=== PATIENT | male | born 1995 | race Caucasian/White ===

== ENCOUNTER 2017-01-17 18:45 | Observation (INO) | payer OTHER ==
--- NOTE | 2017-01-17 18:37 | EDPHY ---
Medical Decision Making ED Course/Re-evaluation: CHIEF COMPLAINT: HISTORY OF PRESENT ILLNESS: must have 4 elements: Location, Quality, Severity , Duration, Timing, Context, Modifying Factors, Associated Signs and Symptoms REVIEW OF SYSTEMS: A 10 point review of systems was performed and is negative with the exception of the elements mentioned in the history of present illness. PHYSICAL EXAM: HR, BP, O2 Sat, RR. Temp noted General Appearance: Alert, well hydrated, appropriate, and non-toxic appearing. Head: Atraumatic without scalp tenderness or obvious injury Eyes: Pupils equal, round, reactive to light and accommodation, EOMI, no trauma , no injection. Ears: Clear bilaterally, no perforation, normal landmarks Nose: Atraumatic, no rhinorrhea, clear. Throat: There is no erythema or exudates, no lesions, normal tonsils, mucus membranes moist. Neck: Supple, 2+ carotid upstroke, nontender, no lymphadenopathy. Respiratory: No retractions, no distress, no wheezes, and no accessory muscle use. Lungs are clear to auscultation bilaterally. Cardiovascular: Regular rate and rhythm, no murmurs, rubs, or gallops. Bilateral carotid, radial, dorsalis pedis, and posterior tibial pulses intact. Good capillary refill all extremities. Gastrointestinal: Abdomen is soft, nontender, non-distended, no masses, no rebound, no guarding, no peritoneal signs. Musculoskeletal: Normal active ROM of all extremities, atraumatic. Neurological: Alert, appropriate, and interactive. The patient has normal DTRs and non-focal cranial nerves, motor, sensory, and cerebellar exam. Skin: No rashes, good turgor, no nodules on palpation. Past medical history: Past surgical history: Family history: Social history: DIAGNOSTICS/PROCEDURES/CRITICAL CARE TIME: DIFFERENTIAL DIAGNOSIS: MEDICAL DECISION MAKING:
[2017-01-17] MEDS ORDERED: NS 1,000 ML IV ONE (18:56)
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
[2017-01-17 19:05] LABS: % IMMATURE GRANULYOCYTES 0.3 % (0.0-1.1); ABSOLUTE IMMATURE GRANULOCYTES 0.02 10^3/uL (0.00-0.10); ADD DIFF? NO; ADD MORPH? NO; ADD SCAN? NO; ATYPICAL LYMPHOCYTE FLAG 30 (0-99); FRAGMENT RBC FLAG 0 (0-99); HEMATOCRIT 50.6 % (40.0-51.0); HEMOGLOBIN 17.5 g/dL (13.7-17.5); LEFT SHIFT FLG 0 (0-99); LIPEMIA HEMOLYSIS FLAG 90 (0-99); MEAN CELL HEMOGLOBIN 32.5 pg (27.9-34.1); MEAN CELL HEMOGLOBIN CONCENTR. 34.6 g/dL (32.4-36.7); MEAN CELL VOLUME 94.1 fL (81.5-99.8); PLATELET CLUMPS FLAG 0 (0-99); PLATELET COUNT 290 10^3/uL (150-400); RED BLOOD CELL COUNT 5.38 10^6/uL (4.40-6.38); RED CELL DISTRIBUTION WIDTH 11.5 % (11.5-15.2)
[2017-01-17] MEDS ORDERED: IOPAMIDOL (ISOVUE-300) 100 ML BTL IV ONE (19:05)
[2017-01-17 19:17] LABS: ANION GAP 18 mEq/L (8-16); APTT 27.2 SEC (23.0-38.0); CALCIUM 10.4 mg/dL (8.5-10.4); CARBON DIOXIDE 23 mEq/l (22-31); CHLORIDE 105 mEq/L (97-110); ETHANOL SERUM 235 mg/dL (0-10); GLOMERULAR FILTRATION RATE > 60; GLUCOSE 129 mg/dL (70-100); INR 0.97 (0.83-1.16); POTASSIUM 4.1 mEq/L (3.5-5.2); PROTIME(PATIENT) 12.8 SEC (12.0-15.0); SODIUM 146 mEq/L (134-144)
[2017-01-17] MEDS ORDERED: ONDANSETRON DISINTEGRATING 4 MG TAB PO PRN (21:15)
[2017-01-17] MEDS ORDERED: HYDROCODONE/APAP 5/325 TAB PO PRN (21:15)
[2017-01-17] MEDS ORDERED: ONDANSETRON 4 MG/2 ML VIAL IVP PRN (21:15)
[2017-01-17 22:05] LABS: COLOR COLORLESS; LEUKOCYTE ESTERASE,URINE NEGATIVE (NEGATIVE); NITRITE,URINE NEGATIVE (NEGATIVE)
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
[2017-01-17] MEDS: D5W 1/2 NS 1,000 ML IV SCH (22:52)
[2017-01-18 05:15] LABS: HEMATOCRIT 46.1 % (40.0-51.0); MEAN CELL HEMOGLOBIN 32.7 pg (27.9-34.1); MEAN CELL HEMOGLOBIN CONCENTR. 34.7 g/dL (32.4-36.7); MEAN CELL VOLUME 94.3 fL (81.5-99.8); RED BLOOD CELL COUNT 4.89 10^6/uL (4.40-6.38); RED CELL DISTRIBUTION WIDTH 11.8 % (11.5-15.2)
[2017-01-18] MEDS: ACETAMINOPHEN 325 MG TAB PO PRN ×3 (05:45→15:04)
[2017-01-18] MEDS: D5W 1/2 NS 1,000 ML IV SCH (10:46)
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
[2017-01-18 15:42] VITALS: BP 119/76; PULSE 76; RESP 18; TEMP 98.2; O2SAT 96
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
== END 2017-01-18 16:47 | disposition home or self-care (01) ==
LOC: F3N 22:00
PROVIDERS: ADMIT Surgery; ATTEND Surgery
PROC: 0HQ0XZZ Repair Scalp Skin, External Approach (ICD-10-PCS; principal; 2017-01-17)
DX: S06.0X0A Concussion without loss of consciousness, initial encounter (principal); S01.01XA Laceration without foreign body of scalp, initial encounter; V03.10XA Pedestrian on foot injured in collision with car, pick-up truck or van in traffic accident, initial encounter; Y92.413 State road as the place of occurrence of the external cause; F10.120 Alcohol abuse with intoxication, uncomplicated; Y90.9 Presence of alcohol in blood, level not specified
CPT/HCPCS: 12002; 70450; 71260; 72125; 74177; 92523; 99408; G0378; 80305; 82947-QW; G0397; G0480; J2405; Q9967